=== PATIENT | female | born 1940 | race Caucasian/White ===

== ENCOUNTER 2016-07-26 18:15 | Emergency (ER) | payer MEDICARE, OTHER ==
[~2016-07-26] VITALS: Ht 157.5 cm; Wt 71.4 kg
[2016-07-26 18:53] VITALS: Ht 157.5 cm; Wt 71.4 kg
[2016-07-26] MEDS ORDERED: HYDROCODONE/APAP (5/325) TAB PO ONE (21:00)
--- NOTE | 2016-07-26 21:38 | RADRPT ---
PROCEDURE: XR finger. CLINICAL INDICATION: Right index finger pain TECHNIQUE: PA, oblique and lateral views of the right index finger were obtained. COMPARISON: None available. FINDINGS: Mineralization is within normal limits. No fracture or osseous lesion is identified. Severe narrow ing of the distal interphalangeal joint is present with mild lateral subluxation of the distal phala nx. Soft tissues are unremarkable. No radiopaque foreign body is present. 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 Physician Charan Date Time Electronically viewed and signed by Physician Charan on 07/26/2016 21:37 /
--- NOTE | 2016-07-26 21:40 | RADRPT ---
PROCEDURE: XR Knee. CLINICAL INDICATION: Trauma TECHNIQUE: AP, oblique, sunrise and lateral views of the left knee were obtained a total of 4 imag es sent to the PACS for review. COMPARISON: None. FINDINGS: Mineralization is within normal limits. Abnormal fracture lucency through the lower pole of the pat inge is best seen on the lateral projection without displacement of the fracture fragments. No jonelle tional fractures are noted. Osteoarthrosis of the medial greater than lateral joint space is noted. Diffuse anterior soft tissue swelling is present with a large suprapatellar joint effusion. RPTAT:HJJR IMPRESSION: 1. Acute, closed, nondisplaced fracture involving the lower pole of the left patella. 2. Diffuse soft tissue swelling with a large suprapatellar joint effusion. 3. Osteoarthrosis predominately of the medial joint space. Physician Charan Date Time Electronically viewed and signed by Physician Charan on 07/26/2016 21:39 /
[2016-07-26] MEDS ORDERED: ACET325T33 PO (22:58)
[2016-07-26 23:14] VITALS: BP 128/71; PULSE 77; RESP 18; TEMP 98.3
--- NOTE | 2016-07-29 01:34 | ERA ---
ER Documentation Chief Complaint Date/Time DATE: 07/29/16 TIME: 01:29 Chief Complaint knee, nose and SERGE hand pain s/p fall 4 hour [employer] -KO HPI This is a pleasant 75-year-old female presenting with daughter and granddaughter with a chief complaint of fall with impact to nose, left knee and right index finger 10 hours ago. Patient denies any pain medication as she states her current pain is only 2-3 out of 10. Patient denies any numbness, tingling or other rapidly progressive neuro deficits. Denies loss of consciousness, vomiting or change in appetite. Patient's medical conditions, previous documentations have been reviewed and are consistent with the history given. ROS All systems reviewed and are negative except as per history of present illness. Medications Home Meds Active Scripts Acetaminophen* (Tylenol*) 325 Mg Tablet, 2 TAB PO Q6 Y for PAIN AND OR ELEVATED TEMP, #20 TAB Prov:PAWAN ALEJO PA-C 07/26/16 PMhx/Soc Hx Alcohol Use: No Hx Substance Use: No Hx Tobacco Use: No Smoking Status: Never smoker Physical Exam Vitals Vital Signs Date Time Temp Pulse Resp B/P Pulse Ox O2 Delivery O2 Flow Rate FiO2 07/26/16 23:14 98.3 77 18 128/71 97 Room Air 07/26/16 18:53 98.0 68 18 134/67 97 Physical Exam Const: [] Head: Atraumatic Eyes: Normal Conjunctiva ENT: Normal External Ears, Nose and Mouth. Neck: Full range of motion..~ No meningismus. Resp: Clear to auscultation bilaterally Cardio: Regular rate and rhythm, no murmurs Abd: Soft, non tender, non distended. Normal bowel sounds Skin: No petechiae or rashes Back: No midline or flank tenderness Ext: No cyanosis, or edema Neur: Awake and alert Psych: Normal Mood and Affect Results 24 hrs Current Medications Medications (Trade) Dose Ordered Sig/Audrey Route PRN Reason Start Time Stop Time Status Last Admin Dose Admin Acetaminophen/ Hydrocodone Bitart ([place] (5/325)) 1 tab ONCE ONCE PO 07/26/16 21:00 07/26/16 21:01 DC 07/26/16 21:05 Procedures/MDM This is a 75-year-old female presenting 10 hour status post mechanical fall with impact to left knee the right index finger and nose. There are no signs or symptoms of impact to the head causing possible traumatic brain injury. I have little suspicion for intracranial pathologies. At this time I cannot exclude fracture of the nose. I have advised patient to follow-up for reevaluation and possible readjustment. An x-ray was ordered of the right index finger and left knee for evaluation of bony pathology. The x-rays were reviewed by the radiologist and given the following impressions: Right index finger showed arthritis but otherwise unremarkable. IMPRESSION: 1. Acute, closed, nondisplaced fracture involving the lower pole of the left patella. 2. Diffuse soft tissue swelling with a large suprapatellar joint effusion. 3. Osteoarthrosis predominately of the medial joint space. Patient was put in a knee immobilizer. The case has been presented with my attending who has agreed with the assessment and plan of management. Have advised the patient to follow-up with orthopedics in the next 1-3 days for further evaluation. Patient has verbally responded that she understands her current condition and plan of management. Patient will be discharged at this time with discharge instructions return precautions. Patient is still neurovascularly intact bilaterally. Departure Diagnosis: Primary Impression: Patella fracture Qualified Code: S82.002A - Closed nondisplaced fracture of left patella, unspecified fracture morphology, initial encounter Condition: Stable Patient Instructions: Patella Fracture Referrals: [facility] 7 a.m.- 11 p.m. Every Day of the Week NO APPOINTMENT OR AUTHORIZATION NEEDED [facility] Hours: Mon-Fri 9:00 AM - 5:00 PM Additional Instructions: Follow up with your orthopedics within the next 1-7 days for a more thorough evaluation and a possible referral to a specialist. Return the the emergency department immediately if symptoms worsen or change. If you have any questions regarding medications, ask your pharmacist or us before you leave. If any adverse reactions occur while taking your medications, discontinue the treatment and return to the emergency department immediately. Take your medications as directed, and complete the entire course of treatment. PAWAN ALEJO PA-C Jul 29, 2016 01:34
== END 2016-07-26 23:16 | disposition home or self-care (01) ==
LOC: FTE 18:15
DX: S82.002A Unspecified fracture of left patella, initial encounter for closed fracture (principal); W19.XXXA Unspecified fall, initial encounter; Y92.9 Unspecified place or not applicable
CPT/HCPCS: 73140; 73564